=== PATIENT | male | born 1965 | race Caucasian/White ===

== ENCOUNTER 2018-08-24 16:13 | Emergency (ER) | payer SELFPAY ==
[~2018-08-24] VITALS: Ht 167.6 cm; Wt 66.7 kg
--- NOTE | 2018-08-24 16:13 | NUR ---
PT BIBA BLS TO BED 1
[2018-08-24 16:14] VITALS: BP 141/93
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
[2018-08-24] MEDS ORDERED: IBUPROFEN 800 MG TAB PO ONE (17:25)
[2018-08-24 17:36] VITALS: BP 131/84
== END 2018-08-24 17:36 | disposition home or self-care (01) ==
LOC: MED 16:13
DX: S16.1XXA Strain of muscle, fascia and tendon at neck level, initial encounter (principal); R07.89 Other chest pain; R03.0 Elevated blood-pressure reading, without diagnosis of hypertension; V89.2XXA Person injured in unspecified motor-vehicle accident, traffic, initial encounter; Y93.89 Activity, other specified; Y92.89 Other specified places as the place of occurrence of the external cause; Y99.8 Other external cause status
CPT/HCPCS: 72050; 99284